=== PATIENT | female | born 1950 | race African-American/Black ===

== ENCOUNTER 2017-01-19 06:52 | Inpatient (IN) | payer MEDICAID ==
[2017-01-19] VITALS (11 sets, daily range): BP systolic 83–99; BP diastolic 51–66
[~2017-01-19] VITALS: Ht 162.6 cm; Wt 74.4 kg
[~2017-01-19 06:52] MED LIST: ACET-2178 PO; AMLO5TAB4 GT; CLON0.3T GT; COR6 GT; FOLI-43 GT; IPRA3AMP9 HHN; KEPP500 GT; Lactulose PO; MULT-1146 GT; Metformin Hcl PO; PHEN100C4 GT
[2017-01-19] MEDS ORDERED: ACETAMINOPHEN 650MG SUPP PR STA (07:04)
[2017-01-19] MEDS ORDERED: PIPERACILLIN/TAZ 3.375G PREMIX 50 ML IV ONE (07:15)
[2017-01-19] MEDS ORDERED: SODIUM CHLORIDE 0.9% 1000ML BAG (SEPSIS BOLUS) IV ONE (07:15)
[2017-01-19] MEDS ORDERED: VANCOMYCIN 1 G PREMIX 200 ML IV ONE (07:15)
[2017-01-19 07:45] LABS: BG BASE EXCESS 8.2 mmol/L (-2.0-2.0); BG CARBOXYHEMOGLOBIN 0.1 % (0.5-1.5); BG DEOXYHEMOGLOBIN 10.1 % (0.0-5.0); BG FRACTION INSPIRED OXYGEN 40; BG HCO3 ACT 31.9 mmol/L (22.0-26.0); BG METHEMOGLOBIN 0.1 % (0.0-1.5); BG OXYGEN SATURATION 89.9 % (92.0-98.5); BG OXYHEMOGLOBIN 89.7 % (94.0-97.0); BG PCO2 40.8 mmHg (35.0-45.0); BG PH 7.511 (7.350-7.450); BG PO2 57.6 mmHg (75.0-100.0); BG SAMPLE SITE RIGHT BRACHIAL; BG TOTAL HEMOGLOBIN 12.4 g/dL (12.0-18.0); BG VENT MODE NASAL CANNULA
[2017-01-19 07:47] LABS: BASOPHILS % 0.8 % (0.0-2.0); HEMOGLOBIN. 10.2 g/dL (12.0-16.0); LYMPHOCYTES % 24.4 % (20.0-50.0); MEAN CORPUSCULAR HEMOGLOBIN 29.4 pg (28.0-32.0); MEAN PLATELET VOLUME 12.6 fl (7.4-10.4); MONOCYTES % 4.6 % (2.0-8.0); NEUTROPHILS % 70.2 % (40.0-76.0); PLATELET 96 x1000/uL (130-400); RED BLOOD CELL COUNT 3.47 mill/uL (4.2-5.4); RED CELL DISTRIBUTION WIDTH 14.3 % (11.6-14.6); WHITE BLOOD COUNT 10.7 x1000/uL (4.5-11.0)
[2017-01-19 07:52] LABS: PROTHROMBIN TIME 10.7 sec
[2017-01-19 08:07] LABS: ALANINE AMINOTRANSFERASE 150 IU/L (13-61); ALBUMIN 2.2 g/dL (3.4-5.0); ANION GAP 14; CALCIUM 8.7 mg/dL (8.5-10.1); CARBON DIOXIDE 34 mEq/L (21-32); CHLORIDE 109 mEq/L (98-107); INDEX HEMOLYSI 1 (1-3); INDEX ICTERIC 1 (1-4); INDEX LIPEMIC 1 (1-3); NT PRO B-TYPE NATRIURETIC PEP 3275 pg/mL (5-125); eGFR 55 mL/min (>60)
[2017-01-19 08:08] LABS: LACTIC ACID 2.8 mmol/L (0.4-2.0)
[2017-01-19 08:10] LABS: UREA NITROGEN BLOOD 103 mg/dL (7-21)
[2017-01-19 09:35] LABS: CLARITY URINE TURBID (CLEAR); COLOR URINE DARK YELLOW (YELLOW); GLUCOSE URINE TRACE (NEGATIVE); KETONES URINE NEGATIVE (NEGATIVE); LEUKOCYTE ESTERASE URINE 3+ (NEGATIVE); NITRITE URINE NEGATIVE (NEGATIVE); OCCULT BLOOD URINE 2+ (NEGATIVE); PROTEIN URINE 2+ (NEGATIVE); SPECIFIC GRAVITY URINE 1.024 (1.005-1.030)
[2017-01-19 10:04] LABS: BACTERIA URINE 4+; SQUAMOUS EPITHELIAL CELL URINE NONE SEEN /lpf (RARE/1+); WBC URINE 50-100 /hpf (0-2); YEAST URINE 1+
[2017-01-19] MEDS ORDERED: SODIUM CHLORIDE 0.9% 1,000 ML IV SCH (11:30)
[2017-01-19] MEDS: PANTOPRAZOLE SODIUM 40 MG/VIAL IV SCH (13:17)
[2017-01-19] MEDS: ENOXAPARIN 40MG/0.4ML SYR SUBCUT SCH (13:18)
[2017-01-19] MEDS ORDERED: LIDOCAINE HCL 1% 20ML VIAL (Pyxis) INJ ONE (13:57)
[2017-01-19] MEDS ORDERED: SODIUM BICARBONATE 4.2% 5 MEQ/10 ML DISP.SYRIN IV ONE (13:57)
[2017-01-19] MEDS: PIPERACILLIN/TAZ 3.375G PREMIX 50 ML IV SCH ×2 (15:55→23:30)
[2017-01-19] MEDS: ACETAMINOPHEN 325MG TABLET PO PRN (19:55)
[2017-01-19] MEDS: DEXTROSE 5% WATER 1,000 ML IV SCH (22:30)
[2017-01-20] VITALS (18 sets, daily range): BP systolic 79–118; BP diastolic 46–67
[2017-01-20] MEDS ORDERED: VANCOMYCIN 1 G PREMIX 200 ML IV SCH (01:00)
[2017-01-20] MEDS: PIPERACILLIN/TAZ 3.375G PREMIX 50 ML IV SCH ×3 (08:14→23:35)
[2017-01-20] MEDS: PANTOPRAZOLE SODIUM 40 MG/VIAL IV SCH (08:14)
[2017-01-20] MEDS: ENOXAPARIN 40MG/0.4ML SYR SUBCUT SCH (09:00)
[2017-01-20 10:29] LABS: BASOPHILS % 0.7 % (0.0-2.0); DIFFERENTIAL COMMENT 0; EOSINOPHILS % 0.1 % (0.0-5.0); HEMATOCRIT. 22.9 % (36.0-48.0); LYMPHOCYTES % 12.6 % (20.0-50.0); MEAN CORPUSCULAR HEMOGLOBIN 29.1 pg (28.0-32.0); MEAN CORPUSCULAR HGB CONC 31.6 g/dL (31.0-37.0); MEAN CORPUSCULAR VOLUME 92.1 fL (81.0-99.0); MEAN PLATELET VOLUME 12.6 fl (7.4-10.4); MONOCYTES % 1.7 % (2.0-8.0); NEUTROPHILS % 84.9 % (40.0-76.0); PLATELET 67 x1000/uL (130-400); RED BLOOD CELL COUNT 2.48 mill/uL (4.2-5.4); RED CELL DISTRIBUTION WIDTH 15.1 % (11.6-14.6); WHITE BLOOD COUNT 13.7 x1000/uL (4.5-11.0)
[2017-01-20 10:39] LABS: HEMOGLOBIN. 7.2 g/dL (12.0-16.0)
[2017-01-20 11:15] LABS: ALBUMIN 1.7 g/dL (3.4-5.0); BILIRUBIN DIRECT 0.4 mg/dL (0.0-0.2); CALCIUM 7.3 mg/dL (8.5-10.1)
[2017-01-20 11:41] LABS: HEPATITIS B SURFACE ANTIGEN NEGATIVE
[2017-01-20 12:10] LABS: HEPATITIS B CORE AB IGM NEGATIVE
[2017-01-20 12:11] LABS: HEPATITIS A AB IGM NEGATIVE (NEGATIVE)
[2017-01-20] MEDS: DEXTROSE 5% WATER 1,000 ML IV SCH ×2 (12:12→21:49)
[2017-01-20 12:45] LABS: HEPATITIS C VIR.AB > 11.00 INDEXVAL (0.00-0.80)
[2017-01-20 12:57] LABS: HEMATOCRIT 21.6 % (36.0-48.0)
[2017-01-20] MEDS ORDERED: POTASSIUM CHLORIDE INJ 40 MEQ in DEXT 5% WATER 250 ML IV SCH (13:00)
[2017-01-20 13:02] LABS: PHOSPHORUS 3.6 mg/dL (2.5-4.9)
[2017-01-20 13:05] LABS: HEMOGLOBIN 6.9 g/dL (12.0-16.0)
[2017-01-20 13:09] LABS: MAGNESIUM 3.2 mg/dL (1.8-2.4)
[2017-01-20 20:29] LABS: HEMATOCRIT 27.8 % (36.0-48.0); HEMOGLOBIN 9.1 g/dL (12.0-16.0)
[2017-01-21] VITALS (12 sets, daily range): BP systolic 97–135; BP diastolic 56–93
[2017-01-21] MEDS: DEXTROSE 5% WATER 1,000 ML IV SCH (01:10)
[2017-01-21 06:48] LABS: MEAN CORPUSCULAR HEMOGLOBIN 30.4 pg (28.0-32.0); MEAN CORPUSCULAR HGB CONC 33.4 g/dL (31.0-37.0); PLATELET 61 x1000/uL (130-400); RED BLOOD CELL COUNT 2.96 mill/uL (4.2-5.4); RED CELL DISTRIBUTION WIDTH 14.1 % (11.6-14.6); WHITE BLOOD COUNT 10.6 x1000/uL (4.5-11.0)
[2017-01-21 07:12] LABS: ANION GAP 15; CALCIUM 7.8 mg/dL (8.5-10.1); CARBON DIOXIDE 26 mEq/L (21-32); CHLORIDE 106 mEq/L (98-107); INDEX HEMOLYSI 1 (1-3); INDEX ICTERIC 1 (1-4); INDEX LIPEMIC 1 (1-3); UREA NITROGEN BLOOD 58 mg/dL (7-21); eGFR > 60 mL/min (>60)
[2017-01-21 07:39] LABS: DIFFERENTIAL COMMENT 1
[2017-01-21] MEDS ORDERED: FAMOTIDINE 20MG/2ML VIAL IV SCH (09:00)
[2017-01-21] MEDS: PIPERACILLIN/TAZ 3.375G PREMIX 50 ML IV SCH ×2 (09:17→23:18)
[2017-01-21] MEDS: PANTOPRAZOLE SODIUM 40 MG/VIAL IV SCH (09:17)
[2017-01-21] MEDS: ACETAMINOPHEN 325MG TABLET PO PRN (09:26)
[2017-01-21] MEDS ORDERED: POTASSIUM CHLORIDE INJ 60 MEQ in DEXT 5% WATER 500 ML IV NR (12:00)
[2017-01-21 15:20] LABS: PLATELET ESTIMATE DECREASED
[2017-01-21] MEDS: VANCOMYCIN 750 MG PREMIX 150 ML IV SCH (20:38)
[2017-01-22] VITALS (12 sets, daily range): BP systolic 101–144; BP diastolic 65–87
[2017-01-22 07:00] LABS: BASOPHILS % 0.2 % (0.0-2.0); EOSINOPHILS % 0.7 % (0.0-5.0); HEMATOCRIT. 27.5 % (36.0-48.0); HEMOGLOBIN. 9.2 g/dL (12.0-16.0); LYMPHOCYTES % 14.7 % (20.0-50.0); MEAN CORPUSCULAR HEMOGLOBIN 29.8 pg (28.0-32.0); MEAN CORPUSCULAR HGB CONC 33.4 g/dL (31.0-37.0); MEAN CORPUSCULAR VOLUME 89.4 fL (81.0-99.0); MEAN PLATELET VOLUME 12.3 fl (7.4-10.4); MONOCYTES % 4.6 % (2.0-8.0); NEUTROPHILS % 79.8 % (40.0-76.0); PLATELET 72 x1000/uL (130-400); RED BLOOD CELL COUNT 3.07 mill/uL (4.2-5.4); RED CELL DISTRIBUTION WIDTH 14.4 % (11.6-14.6); WHITE BLOOD COUNT 6.4 x1000/uL (4.5-11.0)
[2017-01-22 07:41] LABS: ANION GAP 12; CALCIUM 7.7 mg/dL (8.5-10.1); CARBON DIOXIDE 27 mEq/L (21-32); CHLORIDE 108 mEq/L (98-107); INDEX HEMOLYSI 1 (1-3); INDEX ICTERIC 1 (1-4); INDEX LIPEMIC 1 (1-3); MAGNESIUM 2.5 mg/dL (1.8-2.4); PHOSPHORUS 1.6 mg/dL (2.5-4.9); UREA NITROGEN BLOOD 34 mg/dL (7-21); eGFR > 60 mL/min (>60)
[2017-01-22] MEDS: PANTOPRAZOLE SODIUM 40 MG/VIAL IV SCH (08:02)
[2017-01-22] MEDS: PIPERACILLIN/TAZ 3.375G PREMIX 50 ML IV SCH ×2 (08:02→15:09)
[2017-01-22] MEDS: VANCOMYCIN 750 MG PREMIX 150 ML IV SCH (10:17)
[2017-01-22] MEDS ORDERED: DEXTROSE 50% WATER 50ML SYRINGE IV PRN (10:45)
[2017-01-22] MEDS: BLOOD SUGAR DIAGNOSTIC STRIP TEST SCH ×2 (11:55→18:04)
[2017-01-22] MEDS: INSULIN LISPRO 100 UNITS/ML SUBCUT SCH ×3 (12:05→18:11)
[2017-01-22] MEDS: ACETAMINOPHEN 325MG TABLET PO PRN (18:12)
[2017-01-23] VITALS (11 sets, daily range): BP systolic 121–158; BP diastolic 78–104
[2017-01-23] MEDS: BLOOD SUGAR DIAGNOSTIC STRIP TEST SCH ×4 (00:34→17:05)
[2017-01-23] MEDS: PIPERACILLIN/TAZ 3.375G PREMIX 50 ML IV SCH ×3 (00:37→15:06)
[2017-01-23] MEDS: INSULIN LISPRO 100 UNITS/ML SUBCUT SCH ×3 (06:10→17:16)
[2017-01-23 06:26] LABS: ANION GAP 10; CARBON DIOXIDE 28 mEq/L (21-32); CHLORIDE 109 mEq/L (98-107); INDEX HEMOLYSI 3 (1-3); INDEX ICTERIC 1 (1-4); INDEX LIPEMIC 1 (1-3); UREA NITROGEN BLOOD 30 mg/dL (7-21); eGFR > 60 mL/min (>60)
[2017-01-23] MEDS: PANTOPRAZOLE SODIUM 40 MG/VIAL IV SCH (08:19)
[2017-01-23 08:45] LABS: BASOPHILS % 0.9 % (0.0-2.0); DIFFERENTIAL COMMENT 0; EOSINOPHILS % 0.6 % (0.0-5.0); HEMATOCRIT. 28.1 % (36.0-48.0); HEMOGLOBIN. 9.3 g/dL (12.0-16.0); LYMPHOCYTES % 16.4 % (20.0-50.0); MEAN CORPUSCULAR HEMOGLOBIN 29.3 pg (28.0-32.0); MEAN CORPUSCULAR HGB CONC 33.1 g/dL (31.0-37.0); MEAN CORPUSCULAR VOLUME 88.6 fL (81.0-99.0); MEAN PLATELET VOLUME 11.4 fl (7.4-10.4); MONOCYTES % 3.9 % (2.0-8.0); NEUTROPHILS % 78.2 % (40.0-76.0); RED BLOOD CELL COUNT 3.17 mill/uL (4.2-5.4); RED CELL DISTRIBUTION WIDTH 14.3 % (11.6-14.6)
[2017-01-23] MEDS ORDERED: POTASSIUM CHLORIDE 20 MEQ/PACKET PO NR (08:45)
[2017-01-23 08:47] LABS: PLATELET 80 x1000/uL (130-400)
[2017-01-23] MEDS ORDERED: MICAFUNGIN 100 MG in SODIUM CHLORIDE 0.9% 100 ML IV SCH (14:00)
[2017-01-23] MEDS: ACETAMINOPHEN 325MG TABLET PO PRN (15:06)
== END 2017-01-23 19:20 | DRG 720 ==
LOC: ER 06:53 → 5EST 09:53
PROVIDERS: ADMIT Internal Medicine; ATTEND Internal Medicine
PROC: 02HV33Z Insertion of Infusion Device into Superior Vena Cava, Percutaneous Approach (ICD-10-PCS; 2017-01-19)
PROC: B548ZZA Ultrasonography of Superior Vena Cava, Guidance (ICD-10-PCS; 2017-01-19)
PROC: 30233N1 Transfusion of Nonautologous Red Blood Cells into Peripheral Vein, Percutaneous Approach (ICD-10-PCS; principal; 2017-01-20)
DX: A41.9 Sepsis, unspecified organism (principal); J96.91 Respiratory failure, unspecified with hypoxia; R65.21 Severe sepsis with septic shock; N17.9 Acute kidney failure, unspecified; G93.49 Other encephalopathy; I13.0 Hypertensive heart and chronic kidney disease with heart failure and stage 1 through stage 4 chronic kidney disease, or unspecified chronic kidney disease; J18.9 Pneumonia, unspecified organism; K76.6 Portal hypertension; I50.9 Heart failure, unspecified; E87.0 Hyperosmolality and hypernatremia; J44.0 Chronic obstructive pulmonary disease with (acute) lower respiratory infection; E46 Unspecified protein-calorie malnutrition; I42.9 Cardiomyopathy, unspecified; D69.59 Other secondary thrombocytopenia; F02.80 Dementia in other diseases classified elsewhere, unspecified severity, without behavioral disturbance, psychotic disturbance, mood disturbance, and anxiety; E86.0 Dehydration; B19.20 Unspecified viral hepatitis C without hepatic coma; D63.8 Anemia in other chronic diseases classified elsewhere; E11.9 Type 2 diabetes mellitus without complications; N18.9 Chronic kidney disease, unspecified; E11.22 Type 2 diabetes mellitus with diabetic chronic kidney disease; G40.909 Epilepsy, unspecified, not intractable, without status epilepticus; R79.89 Other specified abnormal findings of blood chemistry; I25.10 Atherosclerotic heart disease of native coronary artery without angina pectoris; K74.60 Unspecified cirrhosis of liver; E87.6 Hypokalemia; G30.9 Alzheimer's disease, unspecified; H70.93 Unspecified mastoiditis, bilateral; N39.0 Urinary tract infection, site not specified; R13.10 Dysphagia, unspecified; R47.1 Dysarthria and anarthria; R40.2430 Glasgow coma scale score 3-8, unspecified time; R09.89 Other specified symptoms and signs involving the circulatory and respiratory systems; I25.2 Old myocardial infarction; I69.320 Aphasia following cerebral infarction; Z86.79 Personal history of other diseases of the circulatory system; Z87.01 Personal history of pneumonia (recurrent); Z93.1 Gastrostomy status; Z79.4 Long term (current) use of insulin
CPT/HCPCS: 36415; 36569; 36600; 70450; 71010; 74176; 76700; 76937; 80048; 80053; 80076; 80202; 81001; 82375; 82728; 82805; 82962; 83540; 83550; 83605; 83735; 83880; 84100; 84484; 85014; 85018; 85025; 85044; 85610; 86705; 86709; 86803; 86850; 86900; 86920; 87040; 87086; 87340; 87804; 93005; 93970; 96365; 96366; 96368; 99291; A6261; C1725; C9113; J1650; J1815; J2248; J2543; J3370; J3480; J3490; J7030; J7040; J7050; J7060; J7070; P9016